=== PATIENT | male | born 2000 | race African-American/Black ===

== ENCOUNTER 2021-05-21 10:17 | Emergency (ER) | payer MEDICAID, OTHER ==
[~2021-05-21] VITALS: Ht 185.4 cm; Wt 164.8 kg
[2021-05-21 10:30] VITALS: BP 207/95
[2021-05-21] MEDS ORDERED: IV NORMAL SALINE 1000ML BAG 1,000 ML IV ONE (11:00)
[2021-05-21] MEDS ORDERED: ACETAMINOPHEN 500 MG TABLET PO PRN (11:00)
--- NOTE | 2021-05-21 11:02 | PHYS DOC ---
Past Medical History Past Medical History: No Pertinent History Additional Past Medical Histor: obesity Past Surgical History: No Surgical History Alcohol Use: None Drug Use: None General Adult EDM: Chief Complaint: FLU SYMPTOM HPI: HPI: Patient is a 20 year old male who presents with 5 days of cough, myalgias, hot/cold sweats. He is not vaccinated for COVID-19. 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 He denies any chest pain or severe shortness of breath. He has had diaphoresis frequently. States that he is checked his temperature several times and has not had a fever. No nausea or vomiting, but has been having diarrhea frequently. Also reports a poor appetite during this timeframe Review of Systems: Review of Systems: Constitutional: + Hot and cold sweats, fatigue, diaphoresis, poor appetite [] Eyes: Denies change in visual acuity. [] HENT: Denies nasal congestion or sore throat. [] Respiratory: + cough. No shortness of breath. [] Cardiovascular: Denies chest pain or edema. [] GI: + Diarrhea. Denies abdominal pain, nausea, vomiting, bloody stools. [] : Denies dysuria. [] Musculoskeletal: + Myalgias. Denies back pain or joint pain. [] Integument: Denies rash. [] Neurologic: Denies headache, focal weakness or sensory changes. [] Endocrine: Denies polyuria or polydipsia. [] Lymphatic: Denies swollen glands. [] Psychiatric: Denies depression or anxiety. [] Heart Score: C/O Chest Pain: N/A Risk Factors: Risk Factors: DM, Current or recent (<one month) smoker, HTN, HLP, family history of CAD, obesity. Risk Scores: Score 0 - 3: 2.5% MACE over next 6 weeks - Discharge Home Score 4 - 6: 20.3% MACE over next 6 weeks - Admit for Clinical Observation Score 7 - 10: 72.7% MACE over next 6 weeks - Early Invasive Strategies Allergies: Allergies: Allergies Coded Allergies Type Severity Reaction Last Updated Verified Penicillins Allergy Unknown SWELLING AND HIVES 02/11/14 Yes silicone Allergy Unknown rash 02/11/14 Yes Physical Exam: PE: Constitutional: Diaphoretic. Obese. no acute distress, non-toxic appearance. [] HENT: Normocephalic, atraumatic, bilateral external ears normal, oropharynx moist, no oral exudates, nose normal. [] Eyes: PERRLA, EOMI, conjunctiva normal, no discharge. [] Neck: Normal range of motion, no tenderness, supple, no stridor. [] Cardiovascular:Heart rate regular rhythm, no murmur [] Lungs & Thorax: Obese, lung sounds distant to auscultation. Normal work of breathing. [] Abdomen: Soft, nontender. [] Skin: Mildly diaphoretic. No erythema, no rash. [] Extremities: No tenderness, no cyanosis, no clubbing, ROM intact, no edema. [] Neurologic: Alert and oriented X 3, normal motor function, normal sensory function, no focal deficits noted. [] Psychologic: Affect normal, judgement normal, mood normal. [] EKG: EKG: [] Radiology/Procedures: Radiology/Procedures: CXR [] Impression: [facility] [address] [place], [place] [id number] IMAGING REPORT Signed PATIENT: DEYSI SAWYER MACCOUNT: [id number] : 08/12/1942 LOCATION: ER AGE: 78 SEX: F EXAM STATUS: REG ER ORD. PHYSICIAN: CAMILLE ORDAZ MD REASON: covid + PROCEDURE: CHEST AP ONLY AP chest. HISTORY: Covid positive AP view was taken of the chest. Heart is normal in size. There is no pleural effusion. There is mild elevation the right diaphragm. There is arthritis and rotator cuff degeneration both shoulders. There are no acute infiltrates. IMPRESSION: 1. No acute infiltrates. Electronically signed by: Justin Miles MD (05/21/2021 10:18 AM) [id number] DICTATED and SIGNED BY: JUSTIN MILES MD DATE: 05/21/21 [id number] 0 Course & Med Decision Making: Course & Med Decision Making Pertinent Labs and Imaging studies reviewed. (See chart for details) Patient is a 20-year-old male who is not vaccinated for Covid who presents with 5 days of subjective fever/chills, cough, myalgias. On arrival is afebrile and satting well on room air. He is mildly tachycardic to 110. Likely dehydration in the setting of diarrhea and poor appetite. We will replete with IV fluids. High suspicion is for COVID-19. Will check cell counts and electrolytes as well as a CXR. Given his good respiratory status, feel he will likely be safe for discharge home. Update: Patient received pressing personal news while in the ED and left against medical advice prior to completing his work up or receiving IVF. After patient was discharged COVID rapid swab returned positive. Labs with transaminitis c/w viral syndrome. He had no ttp to suggest acute intrabdominal surgical process. Patient was made aware of his COVID status over the phone and provided with isolation and return precautions. [id number] Denisha Disclaimer: Denisha Disclaimer: This electronic medical record was generated, in whole or in part, using a voice recognition dictation system. Departure Departure Impression: Primary Impression: COVID-19 Disposition: LEFT AGAINST MEDICAL ADVICE Condition: STABLE Referrals: NO PCP (PCP) CAMILLE ORDAZ MD May 21, 2021 11:02
[2021-05-21 11:29] LABS: BASO % 1 % (0-3); EOS # 0.2 x10^3/uL (0.0-0.7); EOS % 3 % (0-3); HEMATOCRIT 44.7 % (39.0-53.0); HEMOGLOBIN 15.1 g/dL (13.0-17.5); LYMPH # 1.5 x10^3/uL (1.0-4.8); LYMPH % 25 % (24-48); MEAN CORPUSCULAR HEMOGLOBIN 28 pg (25-35); MEAN CORPUSCULAR HGB CONC 34 g/dL (31-37); MEAN CORPUSCULAR VOLUME 83 fL (79-100); MONO # 0.8 x10^3/uL (0.0-1.1); MONO % 13 % (0-9); NEUT # 3.5 x10^3/uL (1.8-7.7); NEUT % 58 % (31-73); PLATELET COUNT 215 x10^3/uL (140-400); RED BLOOD COUNT 5.39 x10^6/uL (4.30-5.70); RED CELL DISTRIBUTION WIDTH 12.4 % (11.5-14.5); WHITE BLOOD COUNT 6.1 x10^3/uL (4.0-11.0)
--- NOTE | 2021-05-21 11:30 | RAD ---
XR CHEST 1V CLINICAL INDICATIONS: cough Comparison: None available. Findings: No acute lung infiltrate or pleural effusion or pulmonary edema or lung mass or pneumothora x is seen. The heart size, pulmonary vasculature, mediastinum and both randa are unremarkable. IMPRESSION: No acute radiographic abnormality is seen. Electronically signed by: Dwayne Sheikh MD (05/21/2021 11:28 AM) [id number]
[2021-05-21 11:37] LABS: CALCIUM 9.4 mg/dL (8.5-10.1); CREATININE 0.9 mg/dL (0.7-1.3); GFR 128.9
[2021-05-21 11:44] LABS: ALBUMIN 3.7 g/dL (3.4-5.0); ALBUMIN/GLOBULIN RATIO 0.8 (1.0-1.7); TOTAL BILIRUBIN 0.2 mg/dL (0.2-1.0); TOTAL PROTEIN 8.5 g/dL (6.4-8.2)
== END 2021-05-21 11:20 | disposition left against medical advice (07) ==
LOC: ER 10:17
DX: U07.1 COVID-19 (principal); R19.7 Diarrhea, unspecified; Z88.0 Allergy status to penicillin; Z88.8 Allergy status to other drugs, medicaments and biological substances
CPT/HCPCS: 36415; 71045; 80053; 85025; 87426; 99284; J7030

== ENCOUNTER 2021-07-17 17:36 | Inpatient (IN) | payer OTHER ==
[~2021-07-17] VITALS: Ht 188 cm; Wt 140.7 kg
[2021-07-17] MEDS ORDERED: INSULIN REGULAR 100 UNIT/ML 3ML VIAL. SQ ONE (18:15)
[2021-07-17] MEDS ORDERED: IV NORMAL SALINE 1000ML BAG 1,000 ML IV ONE (18:15)
[2021-07-17] MEDS ORDERED: PANTOPRAZOLE IV PUSH 40 MG VIAL. IVP ONE (18:30)
[2021-07-17] MEDS ORDERED: ONDANSETRON PF 4 MG/2 ML VIAL. IVP ONE (18:30)
--- NOTE | 2021-07-17 18:54 | PHYS DOC ---
Past Medical History Past Medical History: No Pertinent History Additional Past Medical Histor: obesity, COVID 19 Past Surgical History: Tonsillectomy Smoking Status: Never Smoker Alcohol Use: None Drug Use: None General Adult EDM: Chief Complaint: HYPERGLYCEMIA HPI: HPI: 21-year-old male presents via EMS with report of shortness of breath, increased thirst, increased urinary frequency, and itching that been ongoing for the past week. Patient reports he has a "fruity taste "in his mouth. Patient also reports associated nausea and vomiting. Patient reports he has vomited so many times he now noted some blood streaks in his vomitus. Patient denies known sick contacts. Patient reports history of recent positive COVID-19 infection which he tested positive for on May 21, 2021. Patient reports he did not require hospitalization for his COVID. Patient denies history of diabetes however reports strong family history of diabetes. Review of Systems: Review of Systems: Constitutional: Denies fever or chills; reports generalized malaise Eyes: Denies redness or eye pain HENT: Denies nasal congestion or sore throat Respiratory: Denies cough or shortness of breath Cardiovascular: Denies chest pain or palpitations GI: Reports abdominal pain, nausea, vomiting, and hematemesis : Reports increased urinary frequency; denies hematuria Musculoskeletal: Denies back pain or joint pain Integument: Denies rash or skin lesions Neurologic: Denies headache, focal weakness or sensory changes Complete systems were reviewed and found to be within normal limits, except as documented in this note. Heart Score: C/O Chest Pain: N/A Current Medications: Current Medications Medications (Trade) Dose Ordered Sig/[facility] Start Time Stop Time Status Last Admin Dose Admin Insulin Human Regular (HumuLIN R VIAL) 16 unit 1X ONCE 07/17/21 18:15 07/17/21 18:22 DC Ondansetron HCl (Zofran) 4 mg 1X ONCE 07/17/21 18:30 07/17/21 18:31 DC Pantoprazole Sodium (PROTONIX VIAL for IV PUSH) 40 mg 1X ONCE 07/17/21 18:30 07/17/21 18:31 DC Sodium Chloride 1,000 ml @ 1,000 mls/hr 1X ONCE 07/17/21 18:15 07/17/21 19:14 Allergies: Allergies: Allergies Coded Allergies Type Severity Reaction Last Updated Verified Penicillins Allergy Intermediate SWELLING AND HIVES 07/17/21 Yes silicone Allergy Intermediate rash 07/17/21 Yes Physical Exam: PE: Constitutional: Well developed, obese, no acute distress, non-toxic appearance HENT: Normocephalic, atraumatic, mucous membranes dry, ketotic breath Eyes: Conjunctiva normal, no discharge Neck: Normal range of motion, no tenderness, supple Lungs & Thorax: Tachypnea, equal chest rise and fall Abdomen: Soft, no tenderness, no guarding/rebound tenderness/distention Cardiovascular: Tachycardic rhythm on telemetry monitoring, radial pulses equal bilaterally Skin: Warm, dry, no erythema, no rash Extremities: No tenderness, ROM intact, no edema Neurologic: Alert and oriented X 3, no focal deficits noted Psychologic: Affect normal, judgment normal Current Patient Data: Labs: Laboratory Tests Test 07/17/21 17:51 Glucose (Fingerstick) 530 mg/dL (70-99) *H Vital Signs: Vital Signs Date Time Temp Pulse Resp B/P (MAP) Pulse Ox O2 Delivery O2 Flow Rate FiO2 07/17/21 17:44 99.4 121 28 142/67 (92) 99 Room Air 99.4 EKG: EKG: @1752 Sinus tachycardia at 124bpm, NO ST elevation, QRS 102ms, QT/QTc 310/449ms, q wave III, t wave inversion III Radiology/Procedures: Radiology/Procedures: [] Course & Med Decision Making: Course & Med Decision Making Pertinent Labs and Imaging studies reviewed. (See chart for details) Patient presents with HPI and physical exam concerning for diabetic ketoacidosis. Patient has significant family history of diabetes however has not been diagnosed with diabetes in the past. Patient with ketones on breath. EKG with tachycardia. IV fluid hydration given. Accu-Chek greater than 500. Insulin bolus provided. Labs obtained and posted to chart. Acetone positive. Insulin drip initiated. Patient requiring admission for further evaluation and treatment. Discussed with Dr. Arias (hospitalist) who is in agreement with admission. Discussed findings and plan with patient, who acknowledges understanding and agreement. Denisha Disclaimer: Denisha Disclaimer: This electronic medical record was generated, in whole or in part, using a voice recognition dictation system. Departure Departure Impression: Primary Impression: Diabetic ketoacidosis Qualified Codes: E13.10 - Other specified diabetes mellitus with ketoacidosis without coma Disposition: 09 ADMITTED INPATIENT Admitting Physician: BETARIS Ashraf) Condition: GUARDED Referrals: NO PCP (PCP) Critical Care Time Critical care time was 30 minutes which includes time at bedside, spent in discussion of patient's care with specialists and/or family members, with interpretation of laboratory and/or radiological studies and is exclusive of procedures. ALAYNA DEWEY DO Jul 17, 2021 18:54
[2021-07-17 18:58] LABS: BILIRUBIN,URINE NEGATIVE (NEG); CLARITY,URINE CLEAR; COLOR,URINE YELLOW; NITRITE,URINE NEGATIVE (NEG); PROTEIN,URINE 100 mg/dL (NEG-TRACE); UROBILINOGEN,URINE 0.2 mg/dL (0.2 mg/dL)
[2021-07-17 19:14] LABS: BACTERIA,URINE FEW /HPF (0-FEW); HYALINE CASTS, URINE FEW /HPF
[2021-07-17] MEDS ORDERED: IV DEXTROSE 5 %-0.45 % NACL 1,000 ML IV SCH (19:15)
[2021-07-17] MEDS ORDERED: ONDANSETRON PF 4 MG/2 ML VIAL. IVP PRN (19:15)
[2021-07-17] MEDS ORDERED: IV 1/2 NORMAL SALINE 1,000 ML IV SCH (19:15)
[2021-07-17] MEDS ORDERED: POTASSIUM CHLORIDE 10MEQ 100 ML IV PRN ×2 (19:15)
[2021-07-17] MEDS: IV 1/2 NORMAL SALINE 1,000 ML IV SCH ×2 (19:15→23:15)
[2021-07-17 19:22] LABS: BASO # 0.2 x10^3/uL (0.0-0.2); BASO % 1 % (0-3); EOS % 0 % (0-3); HEMATOCRIT 50.1 % (39.0-53.0); HEMOGLOBIN 16.8 g/dL (13.0-17.5); LYMPH % 6 % (24-48); MEAN CORPUSCULAR HEMOGLOBIN 28 pg (25-35); MEAN CORPUSCULAR HGB CONC 33 g/dL (31-37); MEAN CORPUSCULAR VOLUME 85 fL (79-100); MONO # 0.9 x10^3/uL (0.0-1.1); MONO % 6 % (0-9); NEUT % 87 % (31-73); PLATELET COUNT 266 x10^3/uL (140-400); RED CELL DISTRIBUTION WIDTH 12.8 % (11.5-14.5); WHITE BLOOD COUNT 15.1 x10^3/uL (4.0-11.0)
[2021-07-17] MEDS ORDERED: INSULIN,REGULAR 100 UNIT DRIP 100 ML IV ONE (19:30)
[2021-07-17 19:47] LABS: ALBUMIN 4.2 g/dL (3.4-5.0); ALBUMIN/GLOBULIN RATIO 0.8 (1.0-1.7); CALCIUM 9.3 mg/dL (8.5-10.1); CREATININE 1.5 mg/dL (0.7-1.3); GFR 70.8; POTASSIUM 5.2 mmol/L (3.5-5.1); TOTAL BILIRUBIN 0.5 mg/dL (0.2-1.0); TOTAL PROTEIN 9.4 g/dL (6.4-8.2)
[2021-07-17 22:30] VITALS: BP 160/93
[2021-07-17] MEDS: IV NORMAL SALINE 1000ML BAG 1,000 ML IV SCH (22:43)
[2021-07-17 22:45] VITALS: BP 140/87
[2021-07-17 23:00] VITALS: BP 142/86
--- NOTE | 2021-07-17 23:34 | NUR ---
Patient brought to ICU room 109 from ER via cart accompanied by ER nurse. Patient walked to ICU bed from cart with steady gait. Monitor on ST noted. VSS. RA. Answers questions appropriately. No c/o pain or discomfort at this time. Insulin gtt infusing via pump through PIV. Call light within reach. Will monitor.
[2021-07-18] VITALS (25 sets, daily range): BP systolic 132–178; BP diastolic 72–99
[2021-07-18 00:37] LABS: CALCIUM 8.8 mg/dL (8.5-10.1); CREATININE 1.2 mg/dL (0.7-1.3); GFR 91.6; POTASSIUM 3.6 mmol/L (3.5-5.1)
[2021-07-18] MEDS: POTASSIUM CHLORIDE 10MEQ 100 ML IV PRN ×3 (01:11→03:01)
[2021-07-18] MEDS: IV DEXTROSE 5% - 0.9 % NACL 1,000 ML IV SCH ×4 (02:11→15:21)
[2021-07-18] MEDS: IV NORMAL SALINE 1000ML BAG 1,000 ML IV SCH ×2 (02:45→06:45)
[2021-07-18] MEDS: INSULIN REGULAR VIAL 100 UNIT in IV NORMAL SALINE 100ML 100 ML IV PRN ×3 (03:02→15:22)
[2021-07-18 08:30] LABS: CALCIUM 8.6 mg/dL (8.5-10.1); CREATININE 1.3 mg/dL (0.7-1.3); GFR 83.5; POTASSIUM 3.6 mmol/L (3.5-5.1)
[2021-07-18] MEDS ORDERED: POTASSIUM CHLORIDE 20 MEQ TABLET.ER. PO ONE ×2 (09:30→13:15)
--- NOTE | 2021-07-18 10:59 | HP ---
ADMIT DATE: 07/17/2021 CHIEF COMPLAINT: Hyperglycemia. 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 He goes by the name of "____ Shawn Sheth." Basically last night, he presented to the ER with weakness and shortness of breath, increased thirst, increased urinary frequency. He had some itching. He also had a fruity taste in his mouth. Had some associated nausea and vomiting. He states he tested positive for COVID-19 in May and was considering getting a vaccination, but has not yet. While in the ER, he is noted to be in diabetic ketoacidosis. This is his first time being aware that he was diabetic. His glucose was 530 when he arrived. His anion gap was 25. He has been admitted to the ICU on DKA protocol. PAST MEDICAL HISTORY: Overweight and tonsillectomy. ALLERGIES: PENICILLIN AND SILICONE. FAMILY HISTORY: Diabetes. SOCIAL HISTORY: He is a local rapper. He goes by the name of Nikki Sheth. MEDICATIONS: Reviewed. Please refer to the MRAD. REVIEW OF SYSTEMS: GENERAL: No history of weight change, weakness or fevers. SKIN: No bruising, hair changes or rashes. EYES: No blurred, double or loss of vision. NOSE AND THROAT: No history of nosebleeds, hoarseness or sore throat. HEART: No history of palpitations, chest pain or shortness of breath on exertion. LUNGS: Denies cough, hemoptysis, wheezing or shortness of breath. GASTROINTESTINAL: Denies changes in appetite, nausea, vomiting, diarrhea or constipation. GENITOURINARY: No history of frequency, urgency, hesitancy or nocturia. NEUROLOGIC: Denies history of numbness, tingling, tremor or weakness. PSYCHIATRIC: No history of panic, anxiety or depression. ENDOCRINE: No history of heat or cold intolerance, polyuria or polydipsia. EXTREMITIES: Denies muscle weakness, joint pain, pain on walking or stiffness. PHYSICAL EXAMINATION: VITALS: Within normal limits and are stable. GENERAL: No apparent distress. Alert and oriented. HEENT: Normal cephalic atraumatic, external auditory canals are patent EYES: Extraocular muscles are intact, pupils are equally round and reactive to light and accommodation MUSCULOSKELETAL: Well developed, well nourished, good range of motion ENDOCRINE: No thyromegaly was palpated LYMPHATICS: No cervical chain or axillary nodes were noted HEMATOPOIETIC: No bruising NECK: Supple, no JVD, no thyromegaly was noted. LUNGS: Clear to auscultation in all lung holden without rhonchi or wheezing. HEART: RRR, S1, S2 present. Peripheral pulses intact, no obvious murmurs were noted. ABDOMEN: Somewhat obese. EXTREMITIES: Without any cyanosis, clubbing, or edema. Pedal pulses intact, Homans sign is negative. NEUROLOGIC: Normal speech, normal tone. A and O x3, moves all extremities, no obvious focal deficits. PSYCHIATRIC: Normal affect, normal mood. Stable. SKIN: No ulcerations or rashes, good skin turgor, no jaundice. VASCULAR: Good capillary refill, neurovascular bundle appears to be intact. LABORATORY DATA: Electrolytes this morning, sodium 136, potassium 3.6, chloride 104, bicarbonate 14, anion gap is down to 18, BUN is 5, creatinine 1.3, glucose is down to 182. White count is 15, hemoglobin 16.8, platelets 266. Urinalysis shows greater than 1000 glucose, small amount of blood, acetone level was positive. ASSESSMENT AND PLAN: Diabetic ketoacidosis with new onset diabetes. The patient has been admitted to the ICU, on insulin drip, IV fluids and DKA protocol. We will do frequent labs. Trend his anion gap. Correct his electrolytes. Diabetic education. ADRIÁN/FLACA DR: ADRIÁN/severino TID: [id number]
[2021-07-18 12:54] LABS: CALCIUM 8.7 mg/dL (8.5-10.1); CREATININE 1.2 mg/dL (0.7-1.3); GFR 91.6; POTASSIUM 3.2 mmol/L (3.5-5.1)
[2021-07-18 17:11] LABS: CALCIUM 8.6 mg/dL (8.5-10.1); CREATININE 1.2 mg/dL (0.7-1.3); GFR 91.6; POTASSIUM 3.3 mmol/L (3.5-5.1)
[2021-07-18] MEDS ORDERED: DEXTROSE 50% 25 GM / 50ML DISP.SYRIN. IV PRN (17:45)
[2021-07-18] MEDS: INSULIN LISPRO 300 UNITS/3 ML VIAL. SQ SCH ×2 (17:56→17:57)
[2021-07-18] MEDS: POTASSIUM PHOS,M-BASIC-D-BASIC 15 MMOL in IV NORMAL SALINE 100ML 100 ML IV SCH ×2 (18:00→20:36)
[2021-07-18] MEDS ORDERED: MAGNESIUM SULFATE 2GM 50 ML IV ONE (18:00)
[2021-07-18] MEDS ORDERED: INSULIN GLARGINE SYRINGE. SQ SCH (21:00)
[2021-07-19] VITALS (24 sets, daily range): BP systolic 126–197; BP diastolic 53–100
[2021-07-19] MEDS: INSULIN LISPRO 300 UNITS/3 ML VIAL. SQ SCH ×6 (08:24→17:00)
[2021-07-19 11:03] LABS: CALCIUM 8.3 mg/dL (8.5-10.1); CREATININE 1.1 mg/dL (0.7-1.3); GFR 101.3; MAGNESIUM 1.8 mg/dL (1.8-2.4); PHOSPHORUS 1.3 mg/dL (2.6-4.7); POTASSIUM 3.1 mmol/L (3.5-5.1)
[2021-07-19] MEDS: POTASSIUM PHOS,M-BASIC-D-BASIC 15 MMOL in IV NORMAL SALINE 100ML 100 ML IV SCH ×2 (11:47→12:16)
[2021-07-19] MEDS ORDERED: INSULIN GLARGINE SYRINGE. SQ ONE ×2 (13:00→21:00)
--- NOTE | 2021-07-19 14:06 | PDOC ---
[employer] PROGRESS NOTE Date of Service DOS: DATE: 07/19/21 TIME: 14:04 Chief Complaint Chief Complaint New diabetes DKA Overweight History of tonsillectomy History of Present Illness History of Present Illness 07/19/2021 Patient seen and examined in the ICU We had to resume his insulin drip and fluids as his anion gap increased again I spoke with the pharmacy were going to start 12 units of NovoLog with meals and 25 units of Lantus at bedtime plus sliding scale Discussed with RN Chart reviewed Vitals/I&O Vitals/I&O: Vital Signs Date Time Temp Pulse Resp B/P (MAP) Pulse Ox O2 Delivery O2 Flow Rate FiO2 07/19/21 11:02 100 13 143/61 (88) Room Air 07/19/21 08:00 98.4 98.4 07/19/21 04:00 100 I & O 07/18/21 07/18/21 07/19/21 15:00 23:00 07:00 Intake Total 2969 ml 3664 ml Output Total 1 ml 1500 ml 1001 ml Balance -1 ml 1469 ml 2663 ml Physical Exam General: Alert, Oriented X3 Heart: Regular rate, Normal S2 Abdomen: Normal bowel sounds, Other (Obese) Extremities: No clubbing Skin: No rashes Labs Labs: Laboratory Tests Test 07/18/21 14:09 07/18/21 15:05 07/18/21 16:15 07/18/21 16:40 Glucose (Fingerstick) 193 mg/dL (70-99) 199 mg/dL (70-99) 187 mg/dL (70-99) Sodium Level 135 mmol/L (136-145) Potassium Level 3.3 mmol/L (3.5-5.1) Chloride Level 104 mmol/L (98-107) Carbon Dioxide Level 18 mmol/L (21-32) Anion Gap 13 (6-14) Blood Urea Nitrogen 5 mg/dL (8-26) Creatinine 1.2 mg/dL (0.7-1.3) Estimated GFR (Cockcroft-Gault) 91.6 Glucose Level 162 mg/dL (70-99) Calcium Level 8.6 mg/dL (8.5-10.1) Test 07/18/21 17:04 07/18/21 17:54 07/19/21 08:21 07/19/21 10:30 Glucose (Fingerstick) 186 mg/dL (70-99) 178 mg/dL (70-99) 330 mg/dL (70-99) Sodium Level 132 mmol/L (136-145) Potassium Level 3.1 mmol/L (3.5-5.1) Chloride Level 101 mmol/L (98-107) Carbon Dioxide Level 14 mmol/L (21-32) Anion Gap 17 (6-14) Blood Urea Nitrogen 3 mg/dL (8-26) Creatinine 1.1 mg/dL (0.7-1.3) Estimated GFR (Cockcroft-Gault) 101.3 Glucose Level 293 mg/dL (70-99) Calcium Level 8.3 mg/dL (8.5-10.1) Phosphorus Level 1.3 mg/dL (2.6-4.7) Magnesium Level 1.8 mg/dL (1.8-2.4) Test 07/19/21 12:18 07/19/21 13:31 Glucose (Fingerstick) 254 mg/dL (70-99) 259 mg/dL (70-99) Assessment and Plan Assessmemt and Plan Problems Medical Problems: (1) Diabetic ketoacidosis Status: Acute New diabetes DKA Overweight History of tonsillectomy Plan Trying to wean him off of the insulin drip once his anion gap clears Once off the drip will start the following; Start 12 units of NovoLog with meals and 25 of Lantus at bedtime Continue sliding scale Diabetic education DVT prophylaxis Full code Comment Review of Relevant I have reviewed the following items lobo (where applicable) has been applied. Medications: Current Medications Medications (Trade) Dose Ordered Sig/Jn Route PRN Reason Start Time Stop Time Status Last Admin Dose Admin Potassium Phosphate 15 mmol/ Sodium Chloride 105 ml @ 52.5 mls/hr Q2H IV 07/18/21 18:00 07/18/21 21:59 DC 07/18/21 20:36 Magnesium Sulfate 50 ml @ 25 mls/hr 1X ONCE IV 07/18/21 18:00 07/18/21 19:59 DC 07/18/21 18:08 Insulin Glargine (Lantus Syringe) 15 unit QHS SQ 07/18/21 21:00 07/18/21 18:15 Insulin Human Lispro (HumaLOG) 0-9 UNITS TIDWMEALS SQ 07/18/21 18:00 07/19/21 12:35 Insulin Human Lispro (HumaLOG) 3 units TIDWMEALS SQ 07/18/21 18:00 07/19/21 12:36 Potassium Phosphate 15 mmol/ Sodium Chloride 105 ml @ 52.5 mls/hr Q2H IV 07/19/21 12:00 07/19/21 15:59 07/19/21 12:16 Insulin Glargine (Lantus Syringe) 10 unit 1X ONCE SQ 07/19/21 13:00 07/19/21 13:01 DC 07/19/21 12:56 Justifications for Admission Other Justification ANDRÉS ANDREW III DO Jul 19, 2021 14:06
[2021-07-19 15:15] LABS: CALCIUM 8.2 mg/dL (8.5-10.1); GFR 113.1; PHOSPHORUS 1.9 mg/dL (2.6-4.7)
--- NOTE | 2021-07-19 15:16 | NUR ---
Pt transferred to room 408. Belongings sent with pt. Transferred by bed.
[2021-07-19 15:20] LABS: POTASSIUM 2.9 mmol/L (3.5-5.1)
[2021-07-19] MEDS: IV DEXTROSE 5% - 0.9 % NACL 1,000 ML IV SCH ×3 (15:43→21:03)
[2021-07-19] MEDS ORDERED: INSULIN REGULAR VIAL 100 UNIT in IV NORMAL SALINE 100ML 100 ML IV PRN (15:45)
[2021-07-19] MEDS ORDERED: POTASSIUM CHLORIDE 20 MEQ TABLET.ER. PO ONE (16:00)
[2021-07-19] MEDS ORDERED: SODIUM PHOSPHATE 30 MMOL in IV NORMAL SALINE 250ML 250 ML IV ONE (16:00)
[2021-07-19] MEDS: IV NORMAL SALINE 1000ML BAG 1,000 ML IV SCH (20:08)
[2021-07-19 23:56] LABS: CALCIUM 8.1 mg/dL (8.5-10.1); GFR 113.1
[2021-07-20] VITALS (12 sets, daily range): BP systolic 115–175; BP diastolic 56–96
[2021-07-20 00:02] LABS: POTASSIUM 2.9 mmol/L (3.5-5.1)
[2021-07-20] MEDS: IV NORMAL SALINE 1000ML BAG 1,000 ML IV SCH ×2 (00:15→17:30)
[2021-07-20 06:13] LABS: CALCIUM 8.5 mg/dL (8.5-10.1); CREATININE 0.9 mg/dL (0.7-1.3); GFR 127.7
[2021-07-20 06:25] LABS: POTASSIUM 2.8 mmol/L (3.5-5.1)
--- NOTE | 2021-07-20 07:28 | NUR ---
Dr. BOYLE notified of potassium level this am. New orders received.
[2021-07-20] MEDS ORDERED: IV NORMAL SALINE 1000ML BAG 1,000 ML IV SCH ×2 (07:30→08:30)
[2021-07-20] MEDS ORDERED: POTASSIUM CHLORIDE 10MEQ 100 ML IV PRN ×2 (07:30)
[2021-07-20] MEDS ORDERED: INSULIN REGULAR VIAL 100 UNIT in IV NORMAL SALINE 100ML 100 ML IV PRN (07:30)
[2021-07-20] MEDS ORDERED: ELECTROLYTE (ICU) PROTOCOL. MC PRN (07:45)
[2021-07-20] MEDS: INSULIN LISPRO 300 UNITS/3 ML VIAL. SQ SCH ×5 (08:00→18:10)
[2021-07-20] MEDS: POTASSIUM CHLORIDE 10MEQ 100 ML IV SCH ×2 (08:07→09:30)
[2021-07-20] MEDS ORDERED: MAGNESIUM SULFATE 4GM 100 ML IV SCH (09:00)
[2021-07-20] MEDS ORDERED: POTASSIUM CHLORIDE 20 MEQ TABLET.ER. PO ONE ×2 (09:45→15:00)
[2021-07-20] MEDS: IV DEXTROSE 5% - 0.9 % NACL 1,000 ML IV SCH ×3 (10:18→14:14)
[2021-07-20] MEDS ORDERED: MAGNESIUM SULFATE 4GM 100 ML IV ONE ×2 (11:15→12:00)
[2021-07-20 14:28] LABS: CALCIUM 8.3 mg/dL (8.5-10.1); CREATININE 0.9 mg/dL (0.7-1.3); GFR 127.7; MAGNESIUM 2.4 mg/dL (1.8-2.4); PHOSPHORUS 1.6 mg/dL (2.6-4.7)
[2021-07-20 14:36] LABS: POTASSIUM 2.7 mmol/L (3.5-5.1)
[2021-07-20] MEDS ORDERED: INSULIN GLARGINE SYRINGE. SQ ONE (15:30)
[2021-07-20] MEDS ORDERED: INSULIN GLARGINE SYRINGE. SQ SCH (21:00)
[2021-07-21 03:10] VITALS: BP 172/96
[2021-07-21] MEDS: IV NORMAL SALINE 1000ML BAG 1,000 ML IV SCH (03:20)
[2021-07-21 04:49] LABS: CALCIUM 8.5 mg/dL (8.5-10.1); CREATININE 0.8 mg/dL (0.7-1.3); GFR 146.3
[2021-07-21 07:00] VITALS: BP 162/100
[2021-07-21] MEDS: INSULIN LISPRO 300 UNITS/3 ML VIAL. SQ SCH ×4 (08:26→12:22)
[2021-07-21 11:00] VITALS: BP 159/62
--- NOTE | 2021-07-21 11:16 | NUR ---
SS following for discharge planning. SS reviewed pt chart and discussed with pt RN. Pt is from home and is currently on room air. DKA. Discharge plan is currently to home when medically ready for discharge. SS will continue to follow for discharge planning.
[2021-07-21] MEDS ORDERED: INSU100V35 SQ (11:18)
[2021-07-21] MEDS ORDERED: INSU100V8 SQ (11:18)
--- NOTE | 2021-07-21 11:55 | PDOC ---
[facility] [facility] PROGRESS NOTE Date of Service DOS: DATE: 07/21/21 TIME: 11:49 Chief Complaint Chief Complaint New diabetes DKA Overweight History of tonsillectomy History of Present Illness History of Present Illness 07/21/2021 Patient seen and examined in the ICU Discussed with RN. Chart reviewed. Patient is awake and responsive. NAD His anion gap decreased to 13 today, compared to 18 yesterday. We discussed with him about his insulin needs and patients seems to understand. 07/19/2021 Patient seen and examined in the ICU We had to resume his insulin drip and fluids as his anion gap increased again I spoke with the pharmacy were going to start 12 units of NovoLog with meals and 25 units of Lantus at bedtime plus sliding scale Discussed with RN Chart reviewed Vitals/I&O Vitals/I&O: Vital Signs Date Time Temp Pulse Resp B/P (MAP) Pulse Ox O2 Delivery O2 Flow Rate FiO2 07/21/21 08:00 Room Air 07/21/21 07:00 97.8 104 17 162/100 (120) 100 97.8 I & O 0 07/20/21 07/20/21 07/21/21 15:00 23:00 07:00 Intake Total 2800 ml 1312 ml 60 ml Output Total 3300 ml 3100 ml 1050 ml Balance -500 ml -1788 ml -990 ml Physical Exam General: Alert, Oriented X3 Heart: Regular rate, Normal S2 Abdomen: Normal bowel sounds, Other (Obese) Extremities: No clubbing Skin: No rashes Labs Labs: Laboratory Tests Test 07/20/21 13:00 07/20/21 14:00 07/20/21 14:06 07/20/21 15:14 Glucose (Fingerstick) 228 mg/dL (70-99) 235 mg/dL (70-99) 200 mg/dL (70-99) Sodium Level 138 mmol/L (136-145) Potassium Level 2.7 mmol/L (3.5-5.1) Chloride Level 104 mmol/L (98-107) Carbon Dioxide Level 23 mmol/L (21-32) Anion Gap 11 (6-14) Blood Urea Nitrogen 1 mg/dL (8-26) Creatinine 0.9 mg/dL (0.7-1.3) Estimated GFR (Cockcroft-Gault) 127.7 Glucose Level 250 mg/dL (70-99) Calcium Level 8.3 mg/dL (8.5-10.1) Phosphorus Level 1.6 mg/dL (2.6-4.7) Magnesium Level 2.4 mg/dL (1.8-2.4) Test 07/20/21 15:28 07/20/21 18:00 07/20/21 20:16 07/21/21 03:55 Glucose (Fingerstick) 205 mg/dL (70-99) 175 mg/dL (70-99) 269 mg/dL (70-99) Sodium Level 137 mmol/L (136-145) Potassium Level 3.0 mmol/L (3.5-5.1) Chloride Level 101 mmol/L (98-107) Carbon Dioxide Level 23 mmol/L (21-32) Anion Gap 13 (6-14) Blood Urea Nitrogen 3 mg/dL (8-26) Creatinine 0.8 mg/dL (0.7-1.3) Estimated GFR (Cockcroft-Gault) 146.3 Glucose Level 249 mg/dL (70-99) Calcium Level 8.5 mg/dL (8.5-10.1) Test 07/21/21 07:37 Glucose (Fingerstick) 288 mg/dL (70-99) Assessment and Plan Assessmemt and Plan Problems Medical Problems: (1) Diabetic ketoacidosis Status: Acute New diabetes DKA Overweight History of tonsillectomy Plan: DKA resolved Continue 15 units of NovoLog with meals and 25 of Lantus at bedtime Continue sliding scale Diabetic education Home meds DVT prophylaxis Full Code Discharge this afternoon Comment Review of Relevant I have reviewed the following items lobo (where applicable) has been applied. Medications: Current Medications Medications (Trade) Dose Ordered Sig/Jn Route PRN Reason Start Time Stop Time Status Last Admin Dose Admin Magnesium Sulfate 100 ml @ 25 mls/hr 1X ONCE IV 07/20/21 12:00 07/20/21 15:17 DC 07/20/21 11:16 Insulin Human Lispro (HumaLOG) 15 units TIDWMEALS SQ 07/20/21 14:21 07/21/21 08:26 Potassium Chloride (Klor-Con) 60 meq 1X ONCE PO 07/20/21 15:00 07/20/21 15:02 DC 07/20/21 15:23 Insulin Glargine (Lantus Syringe) 25 unit 1X ONCE SQ 07/20/21 15:30 07/20/21 15:31 DC 07/20/21 16:34 Sodium Chloride 1,000 ml @ 100 mls/hr Q10H IV 07/20/21 17:30 07/21/21 03:20 Justifications for Admission Other Justification ANDRÉS ANDREW III DO Jul 21, 2021 11:55
--- NOTE | 2021-07-21 12:11 | DS ---
DATE OF DISCHARGE: 07/21/2021 ADMITTING DIAGNOSIS: Diabetic ketoacidosis. DISCHARGE DIAGNOSIS: Resolving diabetic ketoacidosis. HOSPITAL COURSE: The patient is a pleasant middle-aged male who presented with DKA. This was new onset diabetes for him. He had an anion gap of 25. We gave him IV fluids, IV insulin over the past few days, he slowly returned to his baseline. We actually did have to put him through the DKA protocol couple of times because he kept having return of his anion gap metabolic acidosis. Today, I saw and examined him. He is at his baseline. His gap is 13. He looks great. We plan to discharge. I faxed him prescriptions for Lantus and NovoLog insulin. DISPOSITION: Home. ACTIVITY: As tolerated. DIET: Low sodium. DISCHARGE MEDICATIONS: Please see the MRAD. We are giving Lantus 25 units at bedtime and NovoLog 25 units with meals. TOTAL TIME: [address]: Deonna TID: [id number]
--- NOTE | 2021-07-21 12:29 | NUR ---
Nurse's note: Patient refused to eat lunch; non administered scheduled insulin. Discharge Note: [facility] [place] ICU Discharge instructions and discharge home medications reviewed with patient and a copy given. All questions have been answered and understanding verbalized. The following instructions and handouts were given: Discussed insulin, indications, glucose monitoring Discussed hypoglycemia, what to watch out for and treatment Follow up with PCP in a week Discontinued lines and drains: peripheral IV intact, patient tolerated removal, no complications noted Patient discharged to Home or Self Care ambulated at 1230
[2021-07-21] MEDS ORDERED: INSULIN GLARGINE SYRINGE. SQ SCH (21:00)
== END 2021-07-21 12:55 | disposition home or self-care (01) | DRG 637 ==
LOC: ER 17:36 → ED HOLD 19:05 → 1 WEST ICU 20:49
PROVIDERS: ADMIT Internal Medicine; ATTEND Internal Medicine
DX: E11.10 Type 2 diabetes mellitus with ketoacidosis without coma (principal); N17.0 Acute kidney failure with tubular necrosis; R65.11 Systemic inflammatory response syndrome (SIRS) of non-infectious origin with acute organ dysfunction; E66.9 Obesity, unspecified; Z68.39 Body mass index [BMI] 39.0-39.9, adult; Z79.4 Long term (current) use of insulin; Z83.3 Family history of diabetes mellitus; Z88.0 Allergy status to penicillin; Z88.8 Allergy status to other drugs, medicaments and biological substances; Z86.16 Personal history of COVID-19
CPT/HCPCS: 36415; 80048; 80053; 81001; 82010; 82962; 83735; 84100; 85025; 96361; 96365; 96366; 96372; 96375; C9113; J1815; J2405; J3475; J3480; J3490; J7030; J7042; J7050; 99291-25; G0378